=== PATIENT | female | born 1940 | race Caucasian/White ===

== ENCOUNTER → 2020-03-20 09:54 | Outpatient (BNVA) | payer MEDICARE, BC, SELFPAY | PROVIDERS: Family Provider Family Medicine; PCP Family Medicine; Visit Provider Internal Medicine Rheumatology | DX: M94.0 Chondrocostal junction syndrome [Tietze] (principal); Z79.899 Other long term (current) drug therapy; M19.90 Unspecified osteoarthritis, unspecified site; I25.10 Atherosclerotic heart disease of native coronary artery without angina pectoris | CPT/HCPCS: 36415; 71046; 73130; 80076; 82306; 82565; 83516; 85025; 85651; 86140; 86431; 99204 ==

== ENCOUNTER 2020-03-20 11:36 | Outpatient (CLI) | payer MEDICARE, BC, SELFPAY ==
--- NOTE | 2020-03-20 11:43 | XR_ITS ---
WS: [id number] RIGHT HAND: 3 VIEW(S) TECHNIQUE: PA, oblique and lateral. 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 No acute fracture or dislocation. Mild interphalangeal joint space narrowing throughout the hand. Significant joint space narrowing wit h subchondral cystic disease and osteophytes involving the first and second CMC joints. XR/XR hand RT min 3V* [id number] IMPRESSION: 1. Findings most consistent with mild osteoarthritis at the interphalangeal carmine int spaces. Less likely psoriatic arthritis. 2. 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
--- NOTE | 2020-03-20 11:43 | XR_ITS ---
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 Lungs: 7 mm nodule in the central LEFT lung. May be a vessel on end or calcification. Needs further e valuation. Otherwise lungs are clear. Cardiac size: Normal. Mediastinum/Aorta: Mild atherosclerosis aorta. No mediastinal widening. Bones: Increase in thoracic kyphosis. XR/XR chest 2V* [id number] IMPRESSION: 1. Indeterminate 7 mm nodule in the central LEFT lung. This may be a calcifica tion or vessel seen on end. No prior studies for comparison. Recommend follow-u p chest CT with IV contrast to exclude neoplasm. 2. Atherosclerosis aorta.
--- NOTE | 2020-03-20 11:43 | XR_ITS ---
WS: [id number] LEFT HAND: 3 VIEW(S) TECHNIQUE: PA, oblique and lateral. 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 No acute fracture or dislocation. Mild diffuse interphalangeal joint space narrowing. No erosions. Hypertrophic bone formation at the I P joints. No periostitis appreciated. Additional subchondral cystic changes involving the proximal fi rst metacarpal. XR/XR hand LT min 3V* [id number] IMPRESSION: Mild changes of osteoarthritis. No erosions.
[2020-03-20 12:36] LABS: Basophils # 0.1 10^3/uL (0.0-0.1); Basophils % 1.2 %; Eosinophils # 0.2 10^3/uL (0.0-0.8); Eosinophils % 2.8 %; Hematocrit 42.9 % (37.0-47.0); Hemoglobin 13.3 g/dL (11.5-15.3); Lymphocytes # 1.6 10^3/uL (0.8-4.8); Lymphocytes % 27.2 %; Mean Corpuscular Hemoglobin 29.2 pg (28.0-34.0); Mean Corpuscular Volume 94.1 fL (81-99); Mean Platelet Volume 10.4 fL (7.4-10.4); Monocytes # 0.4 10^3/uL (0.2-0.9); Neutrophils # 3.75 10^3/uL (1.8-7.7); Neutrophils % 62.1 %; Nucleated Red Blood Cells % 0 %; Platelet Count 231 10^3/cmm (130-400); Red Blood Count 4.56 10^6/uL (4.1-5.3); Red Cell Distribution Width 13.4 % (12.1-15.1)
[2020-03-20 12:51] LABS: Erythrocyte Sedimentation Rate 15 mm/hr (0-15)
[2020-03-20 13:20] LABS: 25 Hydroxy Vitamin D 76 ng/mL (30-100); Alanine Aminotransferase 10 U/L (0-33); Albumin Level 4.4 g/dL (3.5-5.2); Alkaline Phosphatase 135 IU/L (35-105); Aspartate Amino Transferase 17 U/L (0-32); Globulin 2.8 g/dL (1.3-4.6); Total Bilirubin 0.5 mg/dL (0.15-1.2); Total Protein 7.2 g/dL (6.6-8.7)
[2020-03-21 13:38] LABS: Cyclic Citrullinated Peptide <16 UNITS
[2020-03-25 11:33] LABS: ANCA Interp Negative (Negative)
== END 2020-03-20 11:37 | disposition home or self-care (01) ==
PROVIDERS: PCP Family Medicine; Visit Provider Internal Medicine Rheumatology
DX: M94.0 Chondrocostal junction syndrome [Tietze] (principal); Z79.899 Other long term (current) drug therapy; M19.042 Primary osteoarthritis, left hand; M19.041 Primary osteoarthritis, right hand; I70.0 Atherosclerosis of aorta; R91.1 Solitary pulmonary nodule
CPT/HCPCS: 36415; 71046; 73130; 80076; 82306; 82565; 83516; 85025; 85651; 86140; 86431

== ENCOUNTER → 2020-04-18 12:39 | Outpatient (BNVA) | payer MEDICARE, BC, SELFPAY | PROVIDERS: PCP Family Medicine; Visit Provider Internal Medicine Rheumatology | DX: R07.89 Other chest pain (principal); I25.10 Atherosclerotic heart disease of native coronary artery without angina pectoris; R91.1 Solitary pulmonary nodule; Z79.52 Long term (current) use of systemic steroids; Z87.891 Personal history of nicotine dependence | CPT/HCPCS: 99214 ==

== ENCOUNTER → 2021-06-05 10:39 | Outpatient (BNVA) | payer MEDICARE, BC, SELFPAY | PROVIDERS: PCP Family Medicine; Visit Provider Internal Medicine Rheumatology | DX: M19.041 Primary osteoarthritis, right hand (principal); M19.042 Primary osteoarthritis, left hand; R07.89 Other chest pain; Z79.52 Long term (current) use of systemic steroids; Z79.899 Other long term (current) drug therapy; M45.6 Ankylosing spondylitis lumbar region | CPT/HCPCS: 99214 ==

== ENCOUNTER 2021-06-10 11:55 | Outpatient (CLI) | payer MEDICARE, BC, SELFPAY ==
--- NOTE | 2021-06-10 12:08 | XR_ITS ---
WS: [id number] Exam: XR hand LT min 3V* [id number] Date/Time of Exam: 06/10/2021 12:08 PM Reason For Exam: Z79.899 - Other prison (current) drug therapy No acute fracture or dislocation. Moderate degenerative changes in the IP and MP joints. Surgical abs ence of the greater multangular. Degenerative change at the base of the thumb metacarpal. XR/XR hand LT min 3V* [id number] IMPRESSION: 1. Moderate degenerative changes. No fracture or dislocation.
--- NOTE | 2021-06-10 12:08 | XR_ITS ---
WS: [id number] Exam: XR hand RT min 3V* [id number] Date/Time of Exam: 06/10/2021 12:08 PM Reason For Exam: Z79.899 - Other long-term (current) drug therapy Comparison 03/20/2020. No acute fracture or dislocation. Moderately advanced degenerative changes in the IP and MP joints. F usiform swelling of the second through the fifth fingers. No soft tissue foreign bodies are seen. Adv anced degenerative change at the CMC joint of the thumb. XR/XR hand RT min 3V* [id number] IMPRESSION: 1. No acute fracture or dislocation. 2. Moderately advanced degenerative changes as detailed above.
[2021-06-10 13:00] LABS: Erythrocyte Sedimentation Rate 6 mm/hr (0-15)
[2021-06-11 12:08] LABS: COMPLEMENT COMPONENT C3C 102 mg/dL (83-193); COMPLEMENT COMPONENT C4C 24 mg/dL (15-57)
[2021-06-12 09:42] LABS: HLA-B27 NEGATIVE (NEGATIVE)
[2021-06-12 13:44] LABS: Thyroglobulin AB <1 IU/mL (< or = 1)
[2021-06-12 15:02] LABS: COMPLEMENT, TOTAL (CH50) >60 U/mL (31-60)
[2021-06-13 15:41] LABS: THYROID PEROXIDASE ANTIBODIES <1 IU/mL (<9)
[2021-06-14 14:38] LABS: CENTROMERE B ANTIBODY <1.0 NEG AI (<1.0 NEG); JO-1 ANTIBODY <1.0 NEG AI (<1.0 NEG); RNP ANTIBODY <1.0 NEG AI (<1.0 NEG); SCL-70 ANTIBODY <1.0 NEG AI (<1.0 NEG); SJOGREN'S ANTIBODY (SS-A) <1.0 NEG AI (<1.0 NEG); SM ANTIBODY <1.0 NEG AI (<1.0 NEG); SS-B <1.0 NEG AI (<1.0 NEG)
[2021-06-17 17:37] LABS: ANA SCREEN, IFA NEGATIVE (NEGATIVE)
== END 2021-06-10 11:56 | disposition home or self-care (01) ==
LOC: LAB 11:58
PROVIDERS: PCP Family Medicine; Visit Provider Internal Medicine Rheumatology
DX: M19.90 Unspecified osteoarthritis, unspecified site (principal); Z79.899 Other long term (current) drug therapy; R76.8 Other specified abnormal immunological findings in serum; M45.6 Ankylosing spondylitis lumbar region
CPT/HCPCS: 73130; 85651; 86140; 86160; 86162; 86235; 86255; 86376; 86800; 86812

== ENCOUNTER → 2021-08-21 10:47 | Outpatient (BNVA) | payer MEDICARE, BC, SELFPAY | PROVIDERS: PCP Family Medicine; Visit Provider Internal Medicine Rheumatology | DX: M19.041 Primary osteoarthritis, right hand (principal); M19.042 Primary osteoarthritis, left hand; R07.89 Other chest pain | CPT/HCPCS: 99214 ==

== ENCOUNTER → 2022-08-18 10:51 | Outpatient (BNVA) | payer MEDICARE, BC, SELFPAY | PROVIDERS: PCP Family Medicine; Visit Provider Internal Medicine Rheumatology | DX: R07.89 Other chest pain (principal); M19.041 Primary osteoarthritis, right hand; M19.042 Primary osteoarthritis, left hand | CPT/HCPCS: 99214 ==

== ENCOUNTER → 2022-09-25 10:49 | Outpatient (BNVA) | payer MEDICARE, BC, SELFPAY | PROVIDERS: PCP Family Medicine; Visit Provider Psychiatry & Neurology Neurology | DX: R25.1 Tremor, unspecified (principal); I25.10 Atherosclerotic heart disease of native coronary artery without angina pectoris; I10 Essential (primary) hypertension; Z95.5 Presence of coronary angioplasty implant and graft; J40 Bronchitis, not specified as acute or chronic; Z82.0 Family history of epilepsy and other diseases of the nervous system; Z98.890 Other specified postprocedural states | CPT/HCPCS: 99212 ==

== ENCOUNTER → 2023-08-17 10:25 | Outpatient (BNVA) | payer MEDICARE, BC, SELFPAY | PROVIDERS: PCP Family Medicine; Visit Provider Internal Medicine Rheumatology | DX: R07.89 Other chest pain (principal); M19.041 Primary osteoarthritis, right hand; M19.042 Primary osteoarthritis, left hand | CPT/HCPCS: 99214 ==